=== PATIENT | female | born 1975 | race Caucasian/White ===

== ENCOUNTER 2023-06-13 16:17 | Outpatient (OUT) | payer OTHER, SELFPAY ==
--- NOTE | 2023-06-13 16:25 | US_ITS ---
[facility] [id number] Patient Name: MARTA BETTENCOURT MRN: [id number] date: 1975 Sex: F Assigned Patient Location: [place] Current Patient Location: Accession/Order Number: [id number] Exam Date: 06/13/2023 16:35 Report Date: 06/14/2023 06:28 At the request of: ROMA WALLER Procedure: US venous doppler UE LT EXAMINATION: US venous doppler UE LT HISTORY: strain of left trapezius muscle S46.812A COMPARISON: No relevant comparison available. FINDINGS: REGION: Upper extremity THROMBI: None. COMPRESSIBILITY: Normal compressibility. FLOW: Normal waveform and antegrade flow between 5 and 20 cm/s. OTHER: None. US/US venous doppler UE LT IMPRESSION: 1. No deep vein thrombus within the left upper extremity. 2. No appreciable mass, hematoma, or fluid collection. Electronically authenticated by: SLY LOCO Date: 06/14/2023 06:28
== END 2023-06-13 16:18 | disposition home or self-care (01) ==
LOC: US 16:21
PROVIDERS: Visit Provider Personal Emergency Response Attendant
DX: S46.812A Strain of other muscles, fascia and tendons at shoulder and upper arm level, left arm, initial encounter (principal); M79.89 Other specified soft tissue disorders
CPT/HCPCS: 93971